=== PATIENT | female | born 1960 | race Caucasian/White ===

== ENCOUNTER 2020-01-28 18:02 | Emergency (ER) | payer SELFPAY ==
--- NOTE | ~2020-01-28 | CT_ITS ---
EXAMINATION: CT abdomen pelvis w con DATE: 01/28/2020 19:31 INDICATION: Right-sided flank and abdominal pain. Dysuria. TECHNIQUE: Computed tomography (CT) of the abdomen and pelvis was performed with 100 mL Omnipaque-350 intravenous contrast. Automated exposure control and iterative reconstruction technique were employe d. The dose-length product was 1423.38 mGy-cm. COMPARISON: 05/23/2015 FINDINGS: Minimal discoid atelectasis in the lingula. Chronic fibrosis/scarring in the posterior medial right l ower lobe adjacent to several large thoracic endplate osteophytes. Heart size is normal. No pericardi al or pleural effusion. Diffuse hepatic steatosis with focal sparing along the gallbladder fossa. Gal lbladder, spleen, pancreas, bilateral adrenal glands and left kidney are normal. Unchanged 4 mm low-a ttenuation right renal cyst. No stones seen along the course of the normal caliber ureters. Bladder i s normal. Anteverted uterus and bilateral adnexa are unremarkable. Bowels including the appendix are normal. No free intraperitoneal gas or fluid. No pathologically enlarged abdominal or pelvic lymphade nopathy. There are bridging osteophytes at multiple levels in the lower thoracic spine, consistent wi th diffuse idiopathic skeletal hyperostosis (DISH). IMPRESSION: 1. No acute intra-abdominal/pelvic process. 2. Diffuse hepatic steatosis. Reviewed, dictated and finalized at location A.
[2020-01-28 18:06] VITALS: BP 140/75; PULSE 87; RESP 16; TEMP 36.6; O2SAT 94
--- NOTE | 2020-01-28 18:32 | ED.BACK ---
HPI - Back Pain/Injury General Chief Complaint: Urogenital-Female Stated Complaint: flank pain Time Seen by Provider: 01/28/20 18:17 Source: patient Mode of arrival: ambulatory Limitations: no limitations History of Present Illness HPI Narrative: This is a 59-year-old female that presents the emergency department for right-sided low back pain x1 week. No known injury or trauma. Reports she has been taking anti-inflammatories with some relief. Pain is worsened with certain movements. Also reports some pain on the right side of her abdomen. Reports dysuria. Denies fever, nausea, vomiting, hematuria, saddle anesthesia, or bowel/bladder incontinence. Related Data Allergies Allergy/AdvReac Type Severity Reaction Status Date / Time No Known Allergies Allergy Verified 01/28/20 18:08 Review of Systems Review of Systems: Narrative: CONSTITUTIONAL: Denies fever GASTROINTESTINAL: Reports abdominal pain. Denies nausea, vomiting, or diarrhea. GENITOURINARY: Reports dysuria. Denies hematuria. MUSCULOSKELETAL: Reports back pain, joint pain, and myalgia. NEUROLOGIC: Denies numbness, or weakness. All systems reviewed & are unremarkable except as noted in HPI and below PMFSH Surgical History Surgical History (Updated 01/28/20 @ 18:33 by Corrie Cifuentes PA-C) History of History of tubal ligation Social History Social History (Updated 01/28/20 @ 18:33 by Corrie Cifuentes PA-C) Smoking status: Never smoker Substance use: never Exam Narrative: Exam Narrative: GENERAL: Well-appearing, well-nourished, and in no acute distress. HEAD: Normocephalic, atraumatic. EYES: EOMI. CHEST: Clear to auscultation. No respiratory distress. No wheezes rales or rhonchi HEART: Regular rate and rhythm. No murmur heard. Normal peripheral pulses. ABDOMEN: Soft, nontender, nondistended, normal active bowel sounds. BACK: No midline spinal tenderness EXTREMITIES: Normal range of motion. No edema. Strength equal in bilateral lower extremity (5/5) SKIN: Warm, dry, no rash. NEURO: No focal deficits. Alert and oriented x3. PSYCH: Normal mood and affect Course Vital Signs Vital signs: Vital Signs Temperature 97.8 F 01/28/20 18:06 Pulse Rate 87 01/28/20 18:06 Respiratory Rate 16 01/28/20 18:06 Blood Pressure 140/75 01/28/20 18:06 Pulse Oximetry 94 01/28/20 18:06 Temperature 97.8 F 01/28/20 18:06 Pulse Rate 87 01/28/20 18:06 Respiratory Rate 16 01/28/20 18:06 Blood Pressure 140/75 01/28/20 18:06 Pulse Oximetry 94 01/28/20 18:06 MDM - Back Pain/Injury MDM Narrative Medical decision making narrative: Patient presents to the emergency department for right-sided flank pain x1 week. Also reports dysuria. Patient is afebrile and nontoxic-appearing. She is neurologically intact. CBC and metabolic panel without concerning changes. UA with evidence of possible urinary tract infection. This will go for a culture. CT abdomen pelvis is without acute findings. Patient will be started on oral antibiotics. Patient stable and felt appropriate for further outpatient evaluation. She is to follow-up with her primary care doctor. She was given warnings to return to the ER Lab Data Attestation: I reviewed the patient's lab results. Result diagrams: 01/28/20 18:22 01/28/20 18:21 Labs: Lab Results 01/28/20 01/28/20 01/28/20 Range/Units 18:21 18:22 18:22 WBC 6.1 (4.5-10.0) K/mm3 RBC 4.56 (4.2-5.4) M/mm3 Hgb 13.9 (12.0-15.0) g/dL Hct 40.6 (37.0-47.0) % MCV 89.0 (80-100) fl MCH 30.5 (26-34) pg MCHC 34.2 (32-36) g/dl RDW 13.2 (11.5-14.5) % Plt Count 307 (150-375) k/mm3 MPV 9.6 (7.4-10.4) fl Immature Gran % (Auto) 0.3 (0-0.5) % Neut % (Auto) 52.2 (45.5-73.1) % Lymph % (Auto) 33.7 (18.3-44.2) % [place] % (Auto) 8.9 H (2.6-8.5) % Eos % (Auto) 4.1 (0-4.4) % Baso % (Auto) 0.8 (0.2-1.2) % Lymph # (Auto)
[2020-01-28 18:35] LABS: Basophils Absolute Auto 0.1 K/mm3 (0.0-0.1); Basophils Percent Auto 0.8 % (0.2-1.2); Eosinophils Absolute Auto 0.3 K/mm3 (0-0.3); Eosinophils Percent Auto 4.1 % (0-4.4); Hematocrit 40.6 % (37.0-47.0); Hemoglobin 13.9 g/dL (12.0-15.0); Immature Granulocyte Absolute 0.02 K/mm3 (0.00-0.031); Immature Granulocyte Percent A 0.3 % (0-0.5); Lymphocytes Absolute Auto 2.05 K/mm3 (0.9-3.2); Lymphocytes Percent Auto 33.7 % (18.3-44.2); Mean Corpuscular HGB Conc 34.2 g/dl (32-36); Mean Corpuscular Hemoglobin 30.5 pg (26-34); Mean Platelet Volume 9.6 fl (7.4-10.4); Monocytes Absolute Auto 0.5 K/mm3 (0.1-0.6); Monocytes Percent Auto 8.9 % (2.6-8.5); Neutrophils Absolute Auto 3.2 K/mm3 (1.3-6.7); Neutrophils Percent Auto 52.2 % (45.5-73.1); Platelet Count Result 307 k/mm3 (150-375); Red Blood Count 4.56 M/mm3 (4.2-5.4); Red Cell Distribution Width 13.2 % (11.5-14.5); White Blood Count 6.1 K/mm3 (4.5-10.0)
[2020-01-28 18:39] LABS: Add Urine Microscopic? YES; Appearance Urine Cloudy (Clear); Bacteria Urine Trace /hpf; Bilirubin Urine Negative (Negative); Blood Urine Negative (Negative); Color Urine Yellow (Yellow); Glucose Urine UA 1+ mg/dL (Negative); Ketones Urine Negative (Negative); Leukocyte Esterase Ur 2+ LEU/UL (Negative); Mucus Urine Moderate /lpf; Nitrate Urine Negative (Negative); Protein Urine 1+ mg/dL (Negative); RBC Urine 0-2 /hpf (0-2); Squamous Epithelial Cell Urine Many /hpf (Few)
[2020-01-28 18:40] LABS: Specific Grav Ur 1.032 (1.001-1.035)
[2020-01-28 18:48] LABS: Alanine Aminotransferase 30 U/L (4-35); Albumin Level 4.3 g/dL (3.5-5.1); Alkaline Phosphatase 145 U/L (38-126); Aspartate Amino Transferase 33 U/L (14-36); Bilirubin,Total 0.7 mg/dL (0.2-1.3); Blood Urea Nitrogen 17 mg/dL (7-17); Calcium 9.3 mg/dL (8.4-10.2); Carbon Dioxide 20 mmol/L (22-30); Chloride 108 mmol/L (98-107); Estimated CRCL calculation 76 ml/min; Estimated Glomerular Filt Rate > 60; Glucose 162 mg/dL (65-105); Potassium 4.1 mmol/L (3.4-5.0); Sodium 138 mmol/L (137-145)
== END 2020-01-28 20:31 | disposition home or self-care (01) ==
PROVIDERS: Physician Assistant; Emergency Provider Emergency Medicine; PCP Internal Medicine
DX: N30.00 Acute cystitis without hematuria (principal); K76.0 Fatty (change of) liver, not elsewhere classified
CPT/HCPCS: 36415; 74177; 80053; 81001; 81025; 85025; 87086; 87088; 99284; Q9967

== ENCOUNTER 2023-04-24 04:14 | Emergency (ER) | payer BC, SELFPAY ==
[2023-04-24] VITALS (9 sets, daily range): BP systolic 144–145; BP diastolic 70–84; PULSE 65–97; RESP 16–18; TEMP 36.2; O2SAT 94–100
--- NOTE | ~2023-04-24 | CT_ITS ---
EXAMINATION: CT abdomen pelvis w con DATE: 04/24/2023 05:35 INDICATION: Left lower quadrant abdominal pain. TECHNIQUE: Computed tomography (CT) of the abdomen and pelvis was performed with 100 mL Omnipaque 350 intravenous contrast. Automated exposure control and iterative reconstruction technique were employe d. The dose-length product was 1359.58 mGy-cm. COMPARISON: CT abdomen and pelvis 01/28/2020 FINDINGS: The visualized portions of the lung bases demonstrate mild atelectasis. No pleural effusion . The heart size is normal. No pericardial effusion. The liver, gallbladder, spleen, pancreas, and ad renal glands are normal. There is cortical thinning of the kidneys. There is a 3.5 cm uterine fibroid . There is a 9 mm uterine fibroid. The endometrial complex measures 11 mm in thickness. There are no dilated loops of bowel. The appendix is not visualized. There are no pathologically enlarged lymph no dulce. There is no free intraperitoneal fluid. There is mild thoracic and lumbar spondylosis. IMPRESSION: 1. Thickened endometrial complex. The differential diagnosis includes endometrial hyperplasia, polyp, and carcinoma. Biopsy is recommended. 2. Uterine fibroids. Reviewed, dictated and finalized at location E. IMPRESSION: 1. Thickened endometrial complex. The differential diagnosis includes endometri al hyperplasia, polyp, and carcinoma. Biopsy is recommended. 2. Uterine fibroids.
[2023-04-24 04:50] LABS: Basophils Absolute Auto 0.1 K/mm3 (0.0-0.1); Basophils Percent Auto 0.7 % (0.2-1.2); Eosinophils Absolute Auto 0.2 K/mm3 (0-0.3); Eosinophils Percent Auto 2.7 % (0-4.4); Hematocrit 41.3 % (37.0-47.0); Hemoglobin 14.3 g/dL (12.0-15.0); Immature Granulocyte Absolute 0.02 K/mm3 (0.00-0.031); Immature Granulocyte Percent A 0.3 % (0-0.5); Lymphocytes Percent Auto 28.8 % (18.3-44.2); Mean Corpuscular HGB Conc 34.6 g/dl (32-36); Mean Corpuscular Hemoglobin 31.2 pg (26-34); Mean Corpuscular Volume 90.2 fl (80-100); Mean Platelet Volume 8.9 fl (7.4-10.4); Monocytes Absolute Auto 0.7 K/mm3 (0.1-0.6); Monocytes Percent Auto 8.5 % (2.6-8.5); Neutrophils Absolute Auto 4.5 K/mm3 (1.3-6.7); Platelet Count Result 321 k/mm3 (150-375); Red Blood Count 4.58 M/mm3 (4.2-5.4); Red Cell Distribution Width 12.9 % (11.5-14.5); White Blood Count 7.6 K/mm3 (4.5-10.0)
[2023-04-24 05:01] LABS: Alanine Aminotransferase 41 U/L (6-35); Albumin Level 4.4 g/dL (3.5-5.1); Alkaline Phosphatase 181 U/L (38-126); Anion Gap 12 mmol/L (8-16); Aspartate Amino Transferase 46 U/L (14-36); Bilirubin,Total 0.6 mg/dL (0.2-1.3); Blood Urea Nitrogen 18 mg/dL (7-17); Calcium 10.4 mg/dL (8.4-10.2); Carbon Dioxide 21 mmol/L (22-30); Chloride 106 mmol/L (98-107); Estimated CRCL calculation 71 ml/min; Estimated Glomerular Filt Rate > 60; Glucose 183 mg/dL (65-110); Lipase 88 U/L (23-300); Potassium 4.2 mmol/L (3.4-5.0); Sodium 139 mmol/L (137-145)
[2023-04-24] MEDS: ONDANSETRON INJ 4 MG/2 ML VIAL IV PUSH (05:12)
[2023-04-24] MEDS: SODIUM CHLORIDE 0.9% IV 1,000 ML 999 ML IV CONT (05:12)
--- NOTE | 2023-04-24 05:20 | PC.NURSE ---
Patient taken to CT via w/c at this time.
[2023-04-24 05:28] LABS: Appearance Urine Clear (Clear); Bacteria Urine 1+ /hpf; Bilirubin Urine Negative (Negative); Blood Urine Negative (Negative); Color Urine Yellow (Yellow); Glucose Urine UA 1+ mg/dL (Negative); Ketones Urine Negative (Negative); Leukocyte Esterase Ur Trace LEU/UL (Negative); Nitrate Urine Negative (Negative); Non Pathogenic Casts 0-2; Protein Urine Negative (Negative); RBC Urine 0-2 /hpf (0-2); Specific Grav Ur 1.024 (1.001-1.035); Squamous Epithelial Cell Urine Few /hpf (Few); Urobilinogen Urine 0.2 mg/dL (<2.0)
--- NOTE | 2023-04-24 05:28 | ED.GENADULT ---
HPI - General Adult General Chief complaint: Abdominal Pain Stated complaint: LLQ pain Time Seen by Provider: 04/24/23 04:55 History of Present Illness HPI narrative: Patient 63-year-old woman who presents the emergency department with chief complaint of left lower quadrant pain. Patient reports she is feels nauseated reports the pain is a sharp and uncomfortable feeling worse with movement and worse when she lays down. Patient reports that she has never had pain like this before reports that she has no flank pain denies fever Related Data Allergies Allergy/AdvReac Type Severity Reaction Status Date / Time No Known Allergies Allergy Verified 01/28/20 18:08 Review of Systems Review of Systems: A 10 system review of systems was completed on the patient and is negative except for what is stated in the HPI. Nursing and ancillary documentation was reviewed. [facility] Surgical History Surgical History History of History of tubal ligation Social History Social History Smoking status: Never smoker Substance use: never Exam Narrative: GENERAL: Well-appearing, well-nourished, and in no acute distress. HEAD: Normocephalic, atraumatic. EYES: PERRLA and EOMI. ENT: Nares clear, no rhinorrhea or epistaxis. Mucous membranes moist. NECK: Supple. CHEST: Clear to auscultation. No respiratory distress. HEART: Regular rate and rhythm. No murmur heard. Normal peripheral pulses. ABDOMEN: Soft, tenderness to palpation in the left lower quadrant, slightly distended, normal active bowel sounds. EXTREMITIES: Normal range of motion. No edema. SKIN: Warm, dry, no rash. NEURO: No focal deficits. Alert and oriented x3. PSYCH: Normal mood and affect. Course Vital Signs Vital signs: Vital Signs Temperature 36.2 C L 04/24/23 04:19 Pulse Rate 97 04/24/23 04:19 Respiratory Rate 18 04/24/23 04:19 Blood Pressure 145/70 H 04/24/23 04:19 Pulse Oximetry 100 04/24/23 04:19 Oxygen Delivery Room Air 04/24/23 04:19 Temperature 36.2 C L 04/24/23 04:19 Pulse Rate 97 04/24/23 04:19 Respiratory Rate 18 04/24/23 04:19 Blood Pressure 145/70 H 04/24/23 04:19 Pulse Oximetry 100 04/24/23 04:19 Oxygen Delivery Room Air 04/24/23 04:19 Medical Decision Making MDM Narrative Medical decision making narrative: Differential diagnosis includes diverticulitis, colitis, ureterolithiasis, pyelonephritis, UTI, Laboratory studies were obtained which showed a normal white blood cell count electrolytes are within normal limits liver enzymes were slightly elevated with an ALT of 41 AST of 46 bilirubin is 0.6 urinalysis showed 10-[address] scan of the abdomen pelvis showed a thickened endometrium. Vital Signs Vital Signs: Vital Signs Temperature 36.2 C L 04/24/23 04:19 Pulse Rate 97 04/24/23 04:19 Respiratory Rate 18 04/24/23 04:19 Blood Pressure 145/70 H 04/24/23 04:19 Pulse Oximetry 100 04/24/23 04:19 Oxygen Delivery Room Air 04/24/23 04:19 Temperature 36.2 C L 04/24/23 04:19 Pulse Rate 97 04/24/23 04:19 Respiratory Rate 18 04/24/23 04:19 Blood Pressure 145/70 H 04/24/23 04:19 Pulse Oximetry 100 04/24/23 04:19 Oxygen Delivery Room Air 04/24/23 04:19 Lab Data 04/24/23 04:28 04/24/23 04:28 Labs: Lab Results 04/24/23 04/24/23 Range/Units 04:28 05:13 WBC 7.6 (4.5-10.0) K/mm3 RBC 4.58 (4.2-5.4) M/mm3 Hgb 14.3 (12.0-15.0) g/dL Hct 41.3 (37.0-47.0) % MCV 90.2 (80-100) fl MCH 31.2 (26-34) pg MCHC 34.6 (32-36) g/dl RDW 12.9 (11.5-14.5) % Plt Count 321 (150-375) k/mm3 MPV 8.9 (7.4-10.4) fl Immature Gran % (Auto) 0.3 (0-0.5) % Neut % (Auto) 59.0 (45.5-73.1) % Lymph % (Auto) 28.8 (18.3-44.2) % [place] % (Auto) 8.5 (2.6-8.5) % Eos % (Auto
[2023-04-24 05:32] LABS: Add Urine Microscopic? YES
[2023-04-24] MEDS: MORPHINE SULFATE (*CRX) 4 MG/ML INJ IV PUSH (05:42)
[2023-04-24] MEDS: CEPHALEXIN 500 MG CAPSULE PO (06:40)
== END 2023-04-24 06:48 | disposition home or self-care (01) ==
PROVIDERS: Emergency Provider Emergency Medicine; PCP Internal Medicine
DX: N39.0 Urinary tract infection, site not specified (principal); R93.89 Abnormal findings on diagnostic imaging of other specified body structures; R10.32 Left lower quadrant pain
CPT/HCPCS: 36415; 74177; 80053; 81001; 83690; 85025; 87077; 87086; 87186; 96361; 96374; 96375; 99284; A9270; J2270; J2405; J7030; Q9967

== ENCOUNTER 2023-05-27 02:48 | Day surgery (SDC) | payer BC, SELFPAY ==
[2023-05-25 12:17] VITALS: BMI 33.3
--- NOTE | 2023-05-25 12:21 | PC.NURSE ---
Report to the Outpatient Waiting Room, entrance under the green pavilion located off [facility], at time 0730 on date 05/27/23. Planned Procedure Time: 0930. Time changes happen often and if your time is changed the preop area will call you the afternoon before. - You and your visitor will be asked to self-screen and do not enter if you have any COVID symptoms. - A mask is optional within the hospital at this time. Patients may have clear liquids (water, carbonated beverages, clear teas, apple juice) until 3 hours prior to surgery with a maximum of 20 ounces. - No food from midnight until time of surgery Take the following medications with a SIP of water the morning of surgery: N/A DO NOT STOP ANY OF YOUR OTHER PRESCRIPTION MEDICATIONS PRIOR TO SURGERY ?EXCEPT THE FOLLOWING Medications to discontinue per physician: N/A Date to take last dose: N/A Please no make-up, nail frisian, hairspray, perfume, deodorant, or body powder the day of surgery. No jewelry (including any body piercings) or valuables the day of surgery, leave them at home. Please take a shower or bath the night before, or the morning of, surgery with an antibacterial soap. Wear comfortable, loose fitting clothing. - Jewelry must be removed prior to entering the operating room. Rings and piercings that are not removed may be cut off. - The hospital will not accept responsibility for valuables. - Please leave all valuables, including medications, at home the day of surgery. If you are going home after surgery, a licensed experienced truck driver must drive you home. - NO public transportation without another adult if you receive anesthesia. - We recommend that an adult stay with you for 24 hours following discharge. - We also recommend that you do not drive, make important decision, drink alcoholic beverages, or take any drugs that were not prescribed by your health care provider for at least 24 hours after your discharge time. Follow any additional instructions given to you from your surgeon. If you or anyone in your household have experienced Covid symptoms in the past week, please notify your surgeon or the nurse liaison at the phone number below for possible testing. Telephone instructions given to PT - NOÉ ZHANG and asked if any additional questions and then verbalized understanding. Patient advised to call surgeon office or pre surgery nurse liaison [phone] if any additional questions.
--- NOTE | 2023-05-27 07:06 | WPDHPUPDATE1 ---
History and Physical Update Update Date/Time: 05/27/23 07:06 History and Physical has been reviewed, including an updated exam of the patient. There are NO changes in the patient's condition. Risks, benefits, and alternatives have been discussed and questions answered. Patient agrees to proceed with procedure.
[2023-05-27 07:56] VITALS: BP 147/79; PULSE 87; RESP 18; TEMP 36.5; O2SAT 99
[2023-05-27] MEDS: ACETAMINOPHEN 500 MG TABLET 1000 MG PO (08:03)
[2023-05-27] MEDS: LACTATED RINGERS 1,000 ML 30 ML IV CONT ×2 (08:04→09:59)
--- NOTE | 2023-05-27 08:50 | WPDANESEPPF ---
Anes - Initial Pre Proc Eval Procedure: Operation Date: 05/27/23 09:30 Proposed Procedures p Hysteroscopy Dilation and Curettage - Nilson Light MD Date/Time: 05/27/23 08:50 Surgeon: Nilson Light MD Pre Op Diagnosis: post menopausal bleeding Patient Data Age: 63 Gender: F Height: 1.65 m Weight: 102.7 kg Last Vital Signs Temp 36.5 C 05/27/23 07:56 Pulse 87 05/27/23 07:56 Resp 18 05/27/23 07:56 BP 147/79 H 05/27/23 07:56 Pulse Ox 99 05/27/23 07:56 O2 Del Method Room Air 05/27/23 07:56 Allergies Allergy/AdvReac Type Severity Reaction Status Date / Time No Known Allergies Allergy Verified 05/27/23 08:16 Home Medications Medication Instructions Recorded Confirmed Type No Home Medications 05/25/23 05/27/23 History Patient hx anesthesia problems: none Family hx anesthesia problems: none Results Review: All pre-operative results and documents have been reviewed as part of the pre-operative evaluation. [facility] Past Medical History Medical History Abdominal pain, left lower quadrant Surgical History Surgical History History of x 3 History of hysteroscopy menometorrhagia History of tubal ligation Family History Family History Sibling Malignant neoplasm of prostate brother Grandparent Breast cancer paternal grandmother Social History Social History Smoking status: Never smoker Second hand tobacco smoke exposure: Yes Alcohol intake: current Alcohol use details: RARE Substance use: never Substance use type: does not use Lack of Transportation: No Lack of Food: Never True Current Housing: I Have Housing Concerned About Future Housing: No Difficulty Paying Gas/Electric Bills: No Difficulty Paying for Meds: No Currently Unemployed: No Education: High School Diploma/GED Difficulty w/ Childcare or Family Care: No Living arrangements: alone Additional living arrangements comments: Occupation/Education: occupation Additional occupation/education comments: housekeeping at [employer] Gender identity (if verbalized by the patient): Female Sexual Orientation (if Verbalized by the Patient): Straight or Heterosexual Spiritual care concerns: No Anes - Eval Final PreProcedure Day of Procedure 05/27/23 08:50 Patient weight: obese Heart: regular rate and rhythm Lungs: clear to auscultation Airway: Mallampati scale class II Neurological: alert and oriented Last oral intake: >/= 8 hours ASA classification: II Emergent: no Anesthetic plan: proceed Anesthesia type and monitoring: general GIVS and standard monitoring Results Review: All pre-operative results and documents have been reviewed as part of the pre-operative evaluation. Informed Consent: The patient's anesthetic plan and its attendant risks and benefits were discussed with the patient/family/POA. Questions were solicited and answers provided to the satisfaction of the patient/family/POA.
--- NOTE | 2023-05-27 09:57 | W.PM.PROC2 ---
Procedure Note - Detailed Date of Procedure 05/27/23 Pre-op Diagnosis post menopausal bleeding Post-op Diagnosis Same (Plus adhesions) Procedure Performed 1. Hysteroscopy with curettings 2. Hysteroscopic adhesiolysis Surgeon Nilson Light MD Anesthesia MAC Findings Uterine cavity did peel atrophic as well as endocervical canal without abnormality. Adhesions were noted and these were removed with part of the sampling of the cavity. Description of Procedure Patient prepped draped usual manner for this procedure. Stenotic cervix was noted and hysteroscope was placed through this. Eight atrophic cavity was noted adhesions at the fundus and left fundal area. Sampling of all 4 quadrants as well as removal of adhesions was then undertaken. There was no significant bleeding and thorough evaluation of the endocervical canal as the scope exited revealed no abnormalities or polyps and that cavity either. Patient was sent to recovery room in stable condition Estimated Blood Loss 10 Drains No Packing No Pathology Yes Complications No immediate complications Condition Stable Disposition PACU [facility] Billing Surgery - Charge Forward: Surgery Billing
[2023-05-27 09:59] VITALS: BP 117/74; PULSE 68; RESP 14; O2SAT 96
[2023-05-27 10:25] VITALS: BP 107/55; PULSE 54; RESP 14; O2SAT 97
[2023-05-27 10:50] VITALS: BP 107/55; PULSE 54; RESP 14
== END 2023-05-27 11:07 | disposition home or self-care (01) ==
PROVIDERS: PCP Internal Medicine; Visit Provider Obstetrics & Gynecology
PROC: 0U5B8ZZ Destruction of Endometrium, Via Natural or Artificial Opening Endoscopic (ICD-10-PCS; CPT 58563; principal; 2023-05-27 09:30)
DX: N95.0 Postmenopausal bleeding (principal); E66.9 Obesity, unspecified; Z68.37 Body mass index [BMI] 37.0-37.9, adult
CPT/HCPCS: 58558; 88305; A9270; J1100; J2250; J2405; J2704; J3010; J7120